=== PATIENT | male | born 1980 | race Caucasian/White ===

== ENCOUNTER → 2021-05-20 12:26 | Outpatient (BNVA) | payer BC, SELFPAY | PROVIDERS: PCP Nurse Practitioner Family; Visit Provider Nurse Practitioner Family | DX: M25.50 Pain in unspecified joint (principal); R63.4 Abnormal weight loss; R07.9 Chest pain, unspecified; J45.909 Unspecified asthma, uncomplicated; J31.2 Chronic pharyngitis; I83.93 Asymptomatic varicose veins of bilateral lower extremities; F17.200 Nicotine dependence, unspecified, uncomplicated | CPT/HCPCS: 80053; 80061; 82306; 82607; 83036; 83735; 84403; 84439; 84443; 84550; 85025; 85651; 86038; 86140; 86200; 86431 ==

== ENCOUNTER 2021-06-14 13:29 | Outpatient (CLI) | payer BC, SELFPAY ==
--- NOTE | 2021-06-14 15:00 | CT_ITS ---
WS: [id number] CT CHEST, ABDOMEN, AND PELVIS TECHNIQUE: Contrast-enhanced CT of the chest, abdomen, and pelvis with coronal and sagittal reformatt ed images. Limited solid organ and vascular enhancement due to poor contrast bolus. CLINICAL INFORMATION: R63.4 - Abnormal weight loss COMPARISON: None. DLP: 1880.[address] scans at [facility] use at least one of these dose optimization techniques: automated e xposure control; mA and/or kV adjustment per patient size (includes targeted exams where dose is matc hed to clinical indication); or iterative reconstruction. CT CHEST: Both lungs are well aerated. No acute pulmonary infiltrates. No focal pneumonia or pleural fluid. No suspicious pulmonary parenchymal opacities. Calcified granuloma LEFT lower lobe. Calcified LEFT hilar nodes. Normal caliber thoracic aorta. No mediastinal or hilar lymphadenopathy. No axillary lymphadenopathy. Mild thoracic kyphosis with chronic anterior wedging in the mid thoracic spine. Anterior hypertrophic changes. CT ABDOMEN AND PELVIS: Mild thickening and induration involving the mid and distal transverse colon e xtending to the splenic flexure can be seen with infectious or inflammatory colitis. Recommend clinic al correlation. Colon is otherwise normal in appearance. No evidence of high-grade spondylotic obstru ction. Liver appears normal. Normal gallbladder. Normal GE junction. Normal spleen. Adrenal glands are lawanda l. No hydronephrosis in the kidney. Normal portal vein and splenic vein. Normal visualized pancreas. Celiac and SMA appear patent. Normal caliber abdominal aorta. Sigmoid diverticulosis. No evidence of acute diverticulitis. Tiny fat-containing umbilical hernia. No abdominal or pelvic lymphadenopathy. No inguinal lymphadenopathy. Disc space narrowing worse L5-S1. CT/CT chest abd pel w con* IMPRESSION:Limited solid organ and vascular enhancement due to poor contrast stefan kit. 1. Both lungs are well aerated. No acute pulmonary infiltrates. 2. No adenopathy in the chest abdomen or pelvis. 3. Sigmoid diverticulosis. No evidence of acute diverticulitis. 4. 2 small RIGHT renal cysts. No hydronephrosis in either kidney. 5. Mild thickening and induration involving the mid and distal transverse colo n extending to the splenic flexure suspicious for infectious or inflammatory co litis. Recommend clinical correlation. Colon is otherwise normal in appearance. 6. Disc space narrowing L4-L5 and L5-S1 worse L5-S1 with vacuum disc phenomeno n. 7. Moderate thoracic kyphosis with chronic anterior wedging in the mid thoraci c spine. 8. No other acute findings.
== END 2021-06-14 13:30 | disposition home or self-care (01) ==
LOC: RAD 13:31
PROVIDERS: PCP Nurse Practitioner Family; Visit Provider Nurse Practitioner Family
DX: R63.4 Abnormal weight loss (principal); K57.30 Diverticulosis of large intestine without perforation or abscess without bleeding
CPT/HCPCS: 71260; 74177; Q9967

== ENCOUNTER 2021-07-09 15:08 | Emergency (ER) | payer BC, SELFPAY ==
[2021-07-09 15:26] VITALS: BP 124/87; PULSE 90; RESP 16; TEMP 36.8; O2SAT 97
--- NOTE | 2021-07-09 15:34 | W.ED.ANIMALB ---
HPI - Animal Bite General: Chief Complaint: Animal Bite Stated Complaint: animal bite left hand Time Seen by Provider: 07/09/21 15:29 Source: patient Mode of arrival: ambulatory Limitations: no limitations History of Present Illness: 41-year-old male states that roughly an hour ago his dog was in a fight and tried to break it up he was bitten on his left hand by his dog. He does have roughly 5 puncture wounds to his left hand he states he came because he needs a tetanus update he states his dog is up-to-date on all of his rabies shots. He has some pain he rates a 3 out of 10 denies any other injuries. Associated symptoms: Deny chills, fever(s) or headache(s) Review of Systems Const: Denies: fever(s), chills, body aches or change in appetite Eyes: Denies: blurry vision or eye discomfort ENMT: Denies: throat pain or dental pain Card: Denies: chest pain Resp: Denies: dyspnea GI: Denies: abdominal pain, nausea, vomiting or diarrhea : Denies: dysuria Musc: Reports: extremity pain Skin/Breast: Denies: rash Neuro: Denies: headache(s) Psych: Denies: depression Juan Manuel/Lymph: Denies: easy bruising All/Imm: Denies: urticaria PFSH ED PFSH: Family History Father Diabetes Social History Smoking and tobacco status: current every day smoker cigarettes Packs smoked per day: 0.5 Years cigarettes smoked: 25 Second hand smoke exposure: Yes Alcohol intake: never Adopted: No Caregiver/support person: Yes (spouse) Lives independently: Yes Household members: spouse and children Marital status: service: No Current occupational status: employed Current occupation: [employer] History of recent travel: No Current gender identity: Male Special jayro needs: No Agree to transfusion: No Physical Exam Const: COMMON NORMALS: no acute distress, patient oriented x3 and healthy appearing HENMT: COMMON NORMALS: normocephalic and atraumatic HEAD & SCALP: normocephalic and atraumatic Eye: COMMON NORMALS: Equal, round and reactive pupils present and EOMs intact bilaterally PUPIL: Yes Equal, round and reactive pupils present Neck/C-Spine: COMMON NORMALS: full ROM Chest: COMMONS NORMALS: normal inspection of the chest Resp: COMMON NORMALS: normal respiratory effort Cardio: COMMON NORMALS: regular rate and No murmurs present (Cardio) RATE: regular rate GI: INSPECTION: Yes normal to inspection Extremity: COMMON NORMALS: full ROM NARRATIVE EXTREMITY EXAM: 5-6 puncture wounds to left hand no lacerations Neuro: COMMON NORMALS: patient oriented x3, moves all extremities and no focal motor deficits Psych: COMMON NORMALS: mental status grossly normal, Normal thought process present and cooperative THOUGHT PROCESS: Normal thought process present Skin: COMMON NORMALS: no rashes or lesions noted and no wounds GENERAL SKIN EXAM: no rashes or lesions noted Course Vital Signs: Vital signs: Vital Signs Temperature 98.2 F 07/09/21 15:26 Pulse Rate 90 07/09/21 15:26 Respiratory Rate 16 07/09/21 15:26 Blood Pressure 124/87 07/09/21 15:26 Pulse Oximetry 97 07/09/21 15:26 [facility] - Animal Bite Medical Decision Making Patient presents here with a dog bite to his hand patient had his tetanus updated here we will place him on Augmentin for prophylaxis does not need rabies. He is stable for discharge he has no signs of fractures he does not want an x-ray. He is to follow-up with PCP and return if worsening. Discharge Plan Discharge Patient Disposition: Home Clinical Impression: Dog bite Condition: Stable Prescriptions: New hydrocodone-acetaminophen 5-325 mg tablet 1 tab PO Q6H PRN (Reason: pain) Qty: 14 0RF Augmentin 500-125 mg tablet 1 tab PO BID Qty: 14 0RF No Action budesonide-formoterol [Symbicort] 160-4.5 mcg/actuation HFA aerosol inhaler 2 puff inhalation BID Qty: 10.2 5RF montelukast [Singulair] 10 mg tablet 10 mg PO DAILY Qty: 30 5RF albuterol sulfate [ProAir HFA] 90 mcg/actuation HFA aerosol inhaler 2 puff inhalation Q6H PRN (Reason: shortness of breath or wheezing) Qty: 8.5 5RF ergocalciferol (vitamin D2) 1,250 mcg (50,000 unit) capsule 1,250 mcg PO .weekly Qty: 12 1RF Discharge Orders: Discharge ED (Routine); Ordered 07/09/21 Ordered By: Miguel Suh Referrals: Alanna Seay FNP [Primary Care Provider] - 1-3 days Discharge Diet: Advance as tolerated Discharge Activity: Resume usual activity Patient Instructions: Animal Bite (ED), Opioid Safety Coding Level of Care Code 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
[2021-07-09] MEDS: diphenhydrAMINE 50 mg Capsule PO (15:39)
[2021-07-09] MEDS: HYDROcodone-acetaminophen 5-325 mg Tablet 1 TAB PO (15:39)
[2021-07-09] MEDS: tetanus-dipt-pertussis 0.5 mL SDV IM (15:47)
== END 2021-07-09 15:57 | disposition home or self-care (01) ==
PROVIDERS: Emergency Provider Emergency Medicine; PCP Nurse Practitioner Family
DX: S61.452A Open bite of left hand, initial encounter (principal); Z23 Encounter for immunization; W54.0XXA Bitten by dog, initial encounter
CPT/HCPCS: 90471; 90715; 99283; Q0163